=== PATIENT | male | born 1945 | race Caucasian/White ===

== ENCOUNTER 2020-11-06 12:25 | Inpatient (IN) | payer OTHER, BC ==
[~2020-11-06] VITALS: Ht 180.3 cm; Wt 98.0 kg
[2020-11-06] VITALS (18 sets, daily range): BP systolic 77–163; BP diastolic 51–103
[2020-11-06] MEDS ORDERED: PHOS100P3 PO (12:54)
[2020-11-06] MEDS ORDERED: ENALAPRIL PO (12:54)
[2020-11-06] MEDS ORDERED: QUET100T PO (12:54)
[2020-11-06] MEDS ORDERED: SERT50TA PO (12:54)
[2020-11-06] MEDS ORDERED: [UNRECOGNIZED DRUG - CODE] PO (12:54)
[2020-11-06] MEDS ORDERED: VITAMIN D3 PO (12:54)
[2020-11-06 12:59] LABS: BASOPHILS % (AUTO) 0.4 % (0.0-2.0); EOSINOPHILS % (AUTO) 0.2 % (0.0-7.0); HEMATOCRIT 33.7 % (36.7-47.1); HEMOGLOBIN 11.3 g/dL (12.5-16.3); LYMPHOCYTES # (AUTO) 1.2 K/uL (20.0-40.0); LYMPHOCYTES % (AUTO) 15.6 % (20.5-51.5); MEAN CORPUSCULAR HEMOGLOBIN 28.8 uug (23.8-33.4); MEAN CORPUSCULAR HGB CONC 33 g/dL (32.5-36.3); MEAN CORPUSCULAR VOLUME 86.2 fL (73.0-96.2); MONOCYTES # (AUTO) 0.7 K/uL (2.0-10.0); MONOCYTES % (AUTO) 8.3 % (0.0-11.0); NEUTROPHILS # (AUTO) 6.1 K/uL (1.8-8.9); NEUTROPHILS % (AUTO) 75.5 % (38.5-71.5); PLATELET COUNT (AUTO) 209 K/uL (152-348); RED BLOOD CELL COUNT(AUTO) 3.91 MIL/uL (4.06-5.63)
[2020-11-06 13:07] LABS: CARBON DIOXIDE 24 mmol/L (21-32); CHLORIDE 101 mmol/L (98-107); CREATININE 2.6 mg/dL (0.6-1.3); GLUCOSE 133 mg/dL (74-106); POTASSIUM 3.5 mmol/L (3.5-5.1); UREA NITROGEN, BLOOD 31 mg/dL (7-18)
[2020-11-06 13:09] LABS: ETHANOL < 3 MG/DL (0-0)
[2020-11-06 13:13] LABS: ALANINE AMINOTRANSFERASE 37 U/L (16-63); ALKALINE PHOSPHATASE 60 U/L (50-136); ASPARTATE AMINOTRANSFERASE 88 U/L (15-37); BILIRUBIN,DIRECT 0.2 mg/dL (0.0-0.2); BILIRUBIN,TOTAL 0.4 mg/dL (0.2-1.0); TOTAL PROTEIN, SERUM 7.4 g/dL (6.4-8.2)
[2020-11-06 13:14] LABS: ACETAMINOPHEN < 2.0 ug/mL (10-30)
--- NOTE | 2020-11-06 13:15 | NUR ---
Pt back from CT. Pt's arrived and is at bedside.
--- NOTE | 2020-11-06 13:30 | NUR ---
Dr. Palomares spoke with Dr. Arciniega via telephone, pt to be admitted to CCU 5.
[2020-11-06] MEDS ORDERED: PIPERACILLIN SODIUM/TAZOBACTAM 3.375 G in IV DEXTROSE 5% 50 ML IV ONE (13:45)
[2020-11-06 14:04] LABS: ABG BASE EXCESS -3.4 mmol/L; ABG HCO3 21.8 mmol/L; ABG PCO2 40.2 mmHg (35.0-45.0); ABG PH 7.353 (7.350-7.450); ABG PO2 79.2 mmHg (75.0-100.0); ABG SITE RIGHT RADIAL; ABG TOTAL HEMOGLOBIN 11.2 G/dL (13.5-18.0); COHb 0.8 % (0.5-1.5); MetHb 0.3 % (0.0-1.5); O2Hb 93.6 % (94.0-97.0)
[2020-11-06] MEDS ORDERED: PIPERACILLIN/TAZOBACTAM/D5W 50 ML IV ONE (14:09)
[2020-11-06] MEDS ORDERED: ONDANSETRON 4 MG/2 ML VIAL IV PRN (14:30)
[2020-11-06] MEDS ORDERED: MAGNESIUM HYDROXIDE 30 ML LIQUID UDC PO PRN (14:30)
[2020-11-06] MEDS ORDERED: ACETAMINOPHEN 325 MG TABLET PO PRN (14:30)
[2020-11-06] MEDS ORDERED: Z GUARD REMEDY PASTE 57 GM TUBE TOP PRN (14:30)
[2020-11-06] MEDS ORDERED: IV NS 1000 ML 1,000 ML IV PRN (14:30)
[2020-11-06] MEDS ORDERED: PROPOFOL 100 ML ONE (14:33)
--- NOTE | 2020-11-06 14:34 | NUR ---
EVELINA (-) per Lab (Zak
[2020-11-06 14:38] LABS: *AMPHETAMINE, URINE NEGATIVE (NEGATIVE); *CANNABINOID, URINE NEGATIVE (NEGATIVE); *COCCAINE, URINE NEGATIVE (NEGATIVE); *OPIATE, URINE NEGATIVE (NEGATIVE); *PHENCYCLIDINE SCREEN,URINE NEGATIVE (NEGATIVE)
--- NOTE | 2020-11-06 14:40 | NUR ---
Pt intubated by Dr. Palomares with myself and DESIGN PROJECT MANAGER at bedside. Pt was given Etomidate 20mg IVP and Succinylcoline 120mg IVP prior to intubation as ordered by Dr. Palomares.
[2020-11-06] MEDS ORDERED: ETOMIDATE 20 MG/10 ML VIAL IV ONE (14:45)
[2020-11-06] MEDS ORDERED: SUCCINYLCHOLINE CHLORIDE 200 MG/10 ML VIAL IV ONE (14:45)
[2020-11-06] MEDS ORDERED: FAMOTIDINE. 20 MG/2 ML VIAL IV ONE ×2 (14:45→14:59)
--- NOTE | 2020-11-06 14:45 | NUR ---
SBAR report given to FÁTIMA Keyes in CCU via telephone.
[2020-11-06] MEDS ORDERED: PROPOFOL 1,000 MG/100 ML BOTTLE IV ONE (15:15)
--- NOTE | 2020-11-06 15:19 | NUR ---
S/w Sara MORGAN, gave updated vitals and lab results. Pending AUth # but patient is okay to admit
--- NOTE | 2020-11-06 15:30 | NUR ---
Pt trans to CCU with ACLS guidelines in place by myself and CREATIVE SERVICES DIRECTOR.
[2020-11-06] MEDS ORDERED: NOREPINEPHRINE BITARTRATE 8 MG in IV NORMAL SALINE 242 ML IV PRN (16:15)
[2020-11-06] MEDS: PROPOFOL 100 ML IV PRN ×2 (16:22→19:54)
[2020-11-06 16:47] LABS: ABG BASE EXCESS -5.6 mmol/L; ABG HCO3 20.8 mmol/L; ABG PH 7.292 (7.350-7.450); ABG SITE RIGHT RADIAL; ABG TOTAL HEMOGLOBIN 12.3 G/dL (13.5-18.0); COHb 0.7 % (0.5-1.5); MetHb 0.4 % (0.0-1.5); O2Hb 98.6 % (94.0-97.0); VENT MODE VENT - A/C 15; VT, ABG 450 mL
[2020-11-06] MEDS ORDERED: PIPERACILLIN SODIUM/TAZOBACTAM 3.375 G in IV DEXTROSE 5% 50 ML IV SCH (18:00)
--- NOTE | 2020-11-06 18:14 | NUR ---
Received call from poison control. stated that they will continue with supportive care if needed and will call back tomorrow with updates.
[2020-11-06] MEDS: HEPARIN SODIUM,PORCINE 5,000 UNITS/ML VIAL SQ SCH ×2 (18:19→21:29)
[2020-11-06] MEDS ORDERED: ETOMIDATE 20 MG/10 ML VIAL ONE (19:00)
[2020-11-06] MEDS ORDERED: IV NORMAL SALINE 250 ML IV PRN (19:00)
[2020-11-06] MEDS ORDERED: SUCCINYLCHOLINE CHLORIDE 200 MG/10 ML VIAL ONE (19:00)
[2020-11-06] MEDS: PIPERACILLIN SODIUM/TAZOBACTAM 3.37 G in IV DEXTROSE 5% 100 ML IV SCH (21:30)
[2020-11-07] VITALS (23 sets, daily range): BP systolic 95–175; BP diastolic 42–110
[2020-11-07] MEDS: PROPOFOL 100 ML IV PRN (00:27)
[2020-11-07] MEDS: IV NS 1000 ML 1,000 ML IV PRN ×3 (00:39→20:16)
[2020-11-07 05:03] LABS: BASOPHILS % (AUTO) 0.7 % (0.0-2.0); EOSINOPHILS # (AUTO) 0.1 K/uL (0.0-0.7); EOSINOPHILS % (AUTO) 2.2 % (0.0-7.0); HEMATOCRIT 33.4 % (36.7-47.1); LYMPHOCYTES # (AUTO) 1.4 K/uL (20.0-40.0); LYMPHOCYTES % (AUTO) 22.2 % (20.5-51.5); MEAN CORPUSCULAR HEMOGLOBIN 28.9 uug (23.8-33.4); MEAN CORPUSCULAR HGB CONC 33 g/dL (32.5-36.3); MEAN CORPUSCULAR VOLUME 87.8 fL (73.0-96.2); MONOCYTES # (AUTO) 0.7 K/uL (2.0-10.0); MONOCYTES % (AUTO) 10.6 % (0.0-11.0); NEUTROPHILS % (AUTO) 64.3 % (38.5-71.5); PLATELET COUNT (AUTO) 204 K/uL (152-348); RED BLOOD CELL COUNT(AUTO) 3.81 MIL/uL (4.06-5.63); WHITE BLOOD COUNT (AUTO) 6.3 K/uL (3.6-10.2)
[2020-11-07 05:11] LABS: CARBON DIOXIDE 26 mmol/L (21-32); CHLORIDE 107 mmol/L (98-107); CREATININE 1.4 mg/dL (0.6-1.3); GLUCOSE 122 mg/dL (74-106); MAGNESIUM 2.4 mg/dL (1.8-2.4); PHOSPHOROUS 3.2 mg/dL (2.5-4.9); POTASSIUM 3.6 mmol/L (3.5-5.1); UREA NITROGEN, BLOOD 20 mg/dL (7-18)
[2020-11-07] MEDS: PIPERACILLIN SODIUM/TAZOBACTAM 3.37 G in IV DEXTROSE 5% 100 ML IV SCH ×3 (05:20→21:31)
[2020-11-07 06:31] LABS: ABG BASE EXCESS -2.9 mmol/L; ABG HCO3 22.2 mmol/L; ABG PCO2 39.5 mmHg (35.0-45.0); ABG PH 7.367 (7.350-7.450); ABG PO2 67.5 mmHg (75.0-100.0); ABG SITE RIGHT RADIAL; ABG TOTAL HEMOGLOBIN 12.7 G/dL (13.5-18.0); COHb 0.9 % (0.5-1.5); CPAP,BG 6 cmH20; MetHb 0.3 % (0.0-1.5); O2Hb 92.2 % (94.0-97.0); VENT MODE VENT - CPAP
--- NOTE | 2020-11-07 07:05 | NUR ---
PATIENT RESTLESS, AGITATED, ATTEMPTS TO GET OUT OF BED. DR GARAY CALLED AND NOTIFIED. ABG ON CPAP TRIAL/ORDERS TO EXTUBATE. AT THIS TIME PATIENT EXTUBATED AND ON NASAL CANNULA AT 4L/MIN. PROCEDURE DONE BY RT. AVINASH
--- NOTE | 2020-11-07 07:15 | NUR ---
RECEIVED PATIENT ON NASAL CANNULA AT 4L/MIN. RESTLESS, AGITATED, ON B/L WRIST RESTRAINTS. PATIENT NOTED ATTEMPTING TO REMOVE IV LINE, AND GUADALUPE CATHETER. FOR COMFORT, GUADALUPE CATHETER REMOVED. HEMODYNAMICALLY STABLE. WILL CONTINUE TO MONITOR.
--- NOTE | 2020-11-07 08:30 | NUR ---
ATTENDING HOOP CUTTER, SHRESTHA IN THE UNIT TO FOLLOW UP WITH PATIENT. REPORT GIVEN. ORDERS TO CONTINUE WITH CARE PLAN RECEIVED.
[2020-11-07] MEDS: FAMOTIDINE. 20 MG/2 ML VIAL IV SCH (08:33)
[2020-11-07] MEDS: HEPARIN SODIUM,PORCINE 5,000 UNITS/ML VIAL SQ SCH ×2 (08:34→21:34)
--- NOTE | 2020-11-07 09:38 | NUR ---
REPORT GIVEN TO DR GARAY - JUKEBOX OPERATOR. ORDER RECEIVED AND IMPLEMENTED.
--- NOTE | 2020-11-07 11:47 | NUR ---
Patient remains restless agitated, attempting to get out of bed unsupervised and attempting to removed Iv line and oxygen.
[2020-11-07] MEDS: LORAZEPAM 2 MG/1 ML VIAL IV PRN ×2 (12:00→19:54)
--- NOTE | 2020-11-07 12:00 | NUR ---
PATIENT AGITATED AND REMOVING LINES. ATTEMPTING TO GET OUT OF BED UNATTENDED. REMOVED SPO2 SENSOR, REPLACED SPO2 SENSOR AND PATIENT REMOVED SENSOR AGAIN. PATIENT ON RESTRAINTS FOR SAFETY. WILL CONTINUE TO MONITOR.
[2020-11-07] MEDS: HYDROCODONE/APAP 5-325MG TABLET PO PRN (12:38)
--- NOTE | 2020-11-07 13:15 | NUR ---
PATIENT'S VISITING AT BEDSIDE. BROUGHT HEARING AIDS AND GLASSES - PROPERTY INVENTORY LIST UPDATED.
[2020-11-07] MEDS ORDERED: OLANZAPINE ZYDIS 5 MG TAB.RAPDIS PO ONE (13:45)
--- NOTE | 2020-11-07 17:49 | NUR ---
RECEIVED CALL FROM ESTRELLA FROM POISON CONTROL, UPDATED ON PATIENT CONDITION. STATED THAT THEY WILL "CONTINUE SUPPORT CARE IF NEEDED BUT IS CLEAR FROM THEIR POINT OF VIEW; HOWEVER, REMAINS AN AVAILABLE RESOURCE ANY TIME."
--- NOTE | 2020-11-07 19:10 | NUR ---
PATIENT USES BILATERAL HEARING AIDS
--- NOTE | 2020-11-07 19:10 | NUR ---
RECEIVED PATIENT COMBATIVE , UNCOOPERATIVE , ON OXYGEN 4 L NC , NS AT 75 ML RUNNING , IV INTACT , INCONTINETN OF BOWELS AND URINE
--- NOTE | 2020-11-07 20:00 | NUR ---
AGITATE , COMBATIVE , TIFFANY SITTER AT BEDSIDE TO KENIA M PATIENT
[2020-11-08] VITALS (14 sets, daily range): BP systolic 125–159; BP diastolic 76–97
[2020-11-08] MEDS: HYDROCODONE/APAP 5-325MG TABLET PO PRN ×3 (00:20→20:22)
[2020-11-08] MEDS: LORAZEPAM 2 MG/1 ML VIAL IV PRN (01:57)
[2020-11-08] MEDS: PIPERACILLIN SODIUM/TAZOBACTAM 3.37 G in IV DEXTROSE 5% 100 ML IV SCH ×3 (05:21→22:00)
[2020-11-08 05:24] LABS: BASOPHILS % (AUTO) 0.5 % (0.0-2.0); EOSINOPHILS # (AUTO) 0.2 K/uL (0.0-0.7); EOSINOPHILS % (AUTO) 2.9 % (0.0-7.0); HEMATOCRIT 32.1 % (36.7-47.1); HEMOGLOBIN 10.8 g/dL (12.5-16.3); LYMPHOCYTES # (AUTO) 2.1 K/uL (20.0-40.0); LYMPHOCYTES % (AUTO) 27.7 % (20.5-51.5); MEAN CORPUSCULAR HEMOGLOBIN 29.2 uug (23.8-33.4); MEAN CORPUSCULAR HGB CONC 34 g/dL (32.5-36.3); MEAN CORPUSCULAR VOLUME 86.9 fL (73.0-96.2); MONOCYTES # (AUTO) 0.8 K/uL (2.0-10.0); MONOCYTES % (AUTO) 10.1 % (0.0-11.0); NEUTROPHILS # (AUTO) 4.5 K/uL (1.8-8.9); NEUTROPHILS % (AUTO) 58.8 % (38.5-71.5); PLATELET COUNT (AUTO) 211 K/uL (152-348); RED BLOOD CELL COUNT(AUTO) 3.69 MIL/uL (4.06-5.63); WHITE BLOOD COUNT (AUTO) 7.6 K/uL (3.6-10.2)
[2020-11-08 05:36] LABS: BILIRUBIN,TOTAL 0.6 mg/dL (0.2-1.0); MAGNESIUM 1.9 mg/dL (1.8-2.4); PHOSPHOROUS 2.6 mg/dL (2.5-4.9); POTASSIUM 3.1 mmol/L (3.5-5.1); TOTAL PROTEIN, SERUM 6.6 g/dL (6.4-8.2)
--- NOTE | 2020-11-08 06:55 | NUR ---
patient is easy arousble , , combative and restless when awake , sitter at bedisde on 4 l nc , bp 159/97 hr 75 rr 15 , ns 75 ml christiano , incontinent , no fever noted
--- NOTE | 2020-11-08 07:45 | NUR ---
Received report from minilab operator nurse, patient in bed asleep, no distress noted at this time. Sinus rhythm on the monitor. Oxygen saturation 92% on the monitor with 3L nasal cannula. Sitter at bedside. Bed in low position, side rails up x2. Bed alarm on.
[2020-11-08] MEDS: HEPARIN SODIUM,PORCINE 5,000 UNITS/ML VIAL SQ SCH ×2 (09:23→21:00)
[2020-11-08] MEDS: FAMOTIDINE. 20 MG/2 ML VIAL IV SCH (09:23)
[2020-11-08] MEDS: POTASSIUM CHLORIDE 10 MEQ, LIDOCAINE-MPF 1% 1 ML in IV DEXTROSE 5% 100 ML IV SCH ×4 (09:28→12:08)
[2020-11-08] MEDS ORDERED: OLANZAPINE 10 MG VIAL IM PRN (09:30)
[2020-11-08 10:27] LABS: *BILIRUBIN,URIN NEGATIVE (NEGATIVE); *BLOOD, URINE NEGATIVE (NEGATIVE); *CLARITY,URINE CLEAR (CLEAR); *COLOR,URINE YELLOW (YELLOW); *KETONES,URINE NEGATIVE (NEGATIVE); *UROBILINOGEN,URINE 0.2 E.U./dl (NORMAL); LEUKOCYTE ESTERASE ,URINE NEGATIVE (NEGATIVE); NITRITE, URINE NEGATIVE (NEGATIVE); PH,URINE 6.5 (5.0-8.0); UGLUCOSE NEGATIVE (NEGATIVE)
[2020-11-08] MEDS: IV NS 1000 ML 1,000 ML IV PRN (11:05)
[2020-11-08 11:06] LABS: *CREATININE,URINE 35.6 mg/dL (30-125)
--- NOTE | 2020-11-08 13:06 | NUR ---
Received a return phone call from [facility] after several hours of leaving her a message and despite telling her that we have a consult, and that DR Estrada requested PET Team to be called continues to be adamant that the patient doesn't quality.
--- NOTE | 2020-11-08 13:45 | NUR ---
Patient transferred to Tele floor. Patient pulled out upper arm IV just prior to transfer. Notified Madelyn SHINE.
--- NOTE | 2020-11-08 14:00 | NUR ---
Patient transferred from CCU. Report received from FÁTIMA Keyes. Pt transferred to TELE via wheelchair. Pt very confused and very forgetful. Oriented to person. Abrasion left lower abdomen and right arm. Pt on TELE monitor, sinus rhythm. Pt on room air. No signs of distress and no reports of pain. Urinal at bedside. Unsteady gait. Pt pulled out ANITA midline prior to transfer to TELE. Bed alarm on. Safety and fall precautions in place. Pt is hard of hearing, uses hearing aids. Bed in low and locked position. Will continue to monitor. Addendum: 11/08/20 at 1431 by ARSALAN CHAU RN Pt refused vitals to be taken. Pt does not want to have TELE leads on.
--- NOTE | 2020-11-08 14:30 | NUR ---
attempted to started IV, pt refused. unable to give IV med at this time.
--- NOTE | 2020-11-08 14:30 | NUR ---
pt is refusing all medications, and care. needs constant supervision, pt close to nursing station, increase monitoring is being done. safety measures in place, will continue to monitor.
--- NOTE | 2020-11-08 15:02 | NUR ---
Hotel Or Motel Manager note: Hotel Or Motel Manager consulted received. ADIA attempted to meet with this patient, however patient is confused, observed to be restless, getting out of bed, being redirected and assisted by nursing to return to bed. ADIA is unable to interview patient at this time. ADIA will remain available, and follow up, as needed. Addendum: 11/08/20 at 1503 by DONOVAN CHEEK CORRECTION: Hotel Or Motel Manager consultation received.
--- NOTE | 2020-11-08 17:20 | NUR ---
pt was becoming aggressive and not cooperative with instruction, pt was going to be medicated and was given clear instructions. pt is demented and upon giving the mediation IM, the pt turned his head and bit my lateral forearm and latched on until I was done giving the medication. An incident report was made, hardboard supervisor was made aware, and I went down to ER to get checked.
[2020-11-08] MEDS: QUETIAPINE FUMARATE 100 MG TABLET PO SCH ×2 (18:00→18:01)
[2020-11-08] MEDS: CHLORDIAZEPOXIDE HCL 25 MG CAPSULE PO SCH ×2 (18:00→18:01)
--- NOTE | 2020-11-08 18:59 | NUR ---
pt in bed resting, pt refusing all care, MD made aware. pt needs constant supervision pt on room air, no signs of distress noted, no reports of pain noted. pt ambulatory to restroom with assist, urinal at bedside. bed in low and locked position, safety and fall precautions in place, bed alarm on. will endorse to oncoming nurse.
--- NOTE | 2020-11-08 19:30 | NUR ---
RECEIVED PT IN BED. PT HARD OF HEARING. 1;1 SITTER FOR SAFETY. PT IN NO ACUTE DISTRESS. PT REFUSED IV ACCESS. SAFETY AND COMFORT PROVIDED. WILL CONTINUE TO MONITOR.
--- NOTE | 2020-11-08 20:08 | NUR ---
NOTIFY DEMARCUS SHRESTHA NP THAT PT DON'T HAVE IV ACCESS. PT REFUSING TO HAVE IV ACCESS. PT IN NO ACUTE DISTRESS. WILL CONTINUE TO MONITOR.
[2020-11-09] MEDS: CHLORDIAZEPOXIDE HCL 25 MG CAPSULE PO SCH ×3 (00:37→11:07)
[2020-11-09 04:00] VITALS: BP 141/106
[2020-11-09] MEDS ORDERED: CHLORDIAZEPOXIDE HCL 25 MG CAPSULE ONE (05:33)
[2020-11-09] MEDS: PIPERACILLIN SODIUM/TAZOBACTAM 3.37 G in IV DEXTROSE 5% 100 ML IV SCH (06:00)
--- NOTE | 2020-11-09 06:33 | NUR ---
PT SLEPT INTERMITTENTLY. SITTER FOR SAFETY. PT IN NO ACUTE DISTRESS. IV INTACT. PT REFUSED TO TAKE HIS HEPARIN MEDICATION AND TO HAVE IV ACCESS. DR STEEL. PRESCRIBED MEDICATION GIVEN AND PT TOLERATED IT WELL.AT NORCO 5-325MG PRN WAS GIVEN TO PT FOR GENERALIZED PAIN. PT TOLERATED IT WELL. PT CONFUSED AND NEEDS REDIRECTION. SAFETY AND COMFORT PROVIDED. ALL NEEDS ARE MET. WILL ENDORSE TO INCOMING NURSE FOR CONTINUITY OF CARE.
[2020-11-09 06:36] LABS: BASOPHILS # (AUTO) 0.1 K/uL (0.0-8.0); BASOPHILS % (AUTO) 0.9 % (0.0-2.0); EOSINOPHILS # (AUTO) 0.2 K/uL (0.0-0.7); EOSINOPHILS % (AUTO) 2.9 % (0.0-7.0); HEMATOCRIT 37.9 % (36.7-47.1); HEMOGLOBIN 12.5 g/dL (12.5-16.3); LYMPHOCYTES # (AUTO) 1.8 K/uL (20.0-40.0); LYMPHOCYTES % (AUTO) 27.1 % (20.5-51.5); MEAN CORPUSCULAR HEMOGLOBIN 28.5 uug (23.8-33.4); MEAN CORPUSCULAR HGB CONC 33 g/dL (32.5-36.3); MEAN CORPUSCULAR VOLUME 86.5 fL (73.0-96.2); MONOCYTES # (AUTO) 0.8 K/uL (2.0-10.0); MONOCYTES % (AUTO) 11.2 % (0.0-11.0); NEUTROPHILS # (AUTO) 3.9 K/uL (1.8-8.9); NEUTROPHILS % (AUTO) 57.9 % (38.5-71.5); PLATELET COUNT (AUTO) 256 K/uL (152-348); RED BLOOD CELL COUNT(AUTO) 4.37 MIL/uL (4.06-5.63); WHITE BLOOD COUNT (AUTO) 6.8 K/uL (3.6-10.2)
[2020-11-09 06:42] LABS: PHOSPHOROUS 3.4 mg/dL (2.5-4.9); POTASSIUM 3.2 mmol/L (3.5-5.1)
[2020-11-09] MEDS ORDERED: SERTRALINE HCL 50 MG TABLET PO SCH (09:00)
[2020-11-09] MEDS ORDERED: POTASSIUM CHLORIDE 20 MEQ TAB.PRT.SR PO ONE (09:00)
[2020-11-09] MEDS: HEPARIN SODIUM,PORCINE 5,000 UNITS/ML VIAL SQ SCH (09:00)
[2020-11-09] MEDS ORDERED: FAMOTIDINE 20 MG TABLET PO SCH (09:00)
[2020-11-09] MEDS: HYDROCODONE/APAP 5-325MG TABLET PO PRN (09:49)
--- NOTE | 2020-11-09 10:26 | NUR ---
Motor And Generator Assembler note: This Hat Forming Machine Operator attempted to meet with patient again this morning. Patient is awake, alert, however hard of hearing and unable to engage in conversation with this SW. Patient has 2 hearing aids, one is battery operated, and the other needs to be charged. SW called patient's Fouzia [phone], who stated that she brought batteries and the smelter charger to the hospital yesterday. Patient's sitter looked through patient's belongings and found batteries and smelter charger. Batteries are the wrong size, and therefore cannot be used. The other hearing aid was placed in the smelter charger to be charged. Patient's nurse informed. Patient's inquired about plan of care and discharge plans. Options discussed, pending further evaluations. Patient's stated that at this time, she would not be able to provide the necessary care at home for the patient. SW expressed understanding. SW also inquired if patient has a healthcare directive and POA, and patient's stated that she will bring the POA paperwork to the hospital some time today. SW expressed agreement.
[2020-11-09 11:00] VITALS: BP 134/92
[2020-11-09] MEDS: AMOXICILLIN-CLAVUL 875-125MG TABLET PO SCH ×2 (11:01→20:00)
[2020-11-09 16:10] VITALS: BP 144/80
--- NOTE | 2020-11-09 16:33 | NUR ---
ADIA received a call from patient's physician Ahmet Murdock NP, requesting clarification on POA for the patient, since patient also has a daughter. Per Ahmet, patient's daughter had called the nurse's station yesterday claiming to be a decision maker for the patient, however had not submitted/faxed any paperwork to support this claim, nor had she left a call back number. ADIA received a copy of patient's POA brought in today by patient's Fouzia. The POA identifies patient's Fouzia as POA agent, and it was executed on July 24, 2020. ADIA called patient's Fouzia to inquire about patient's daughter's status, and Fouzia stated that patient's daughter Iqra lives in [place] and "she only calls when she needs money". Fouzia stated that Iqra never answers the phone when someone tries to call her, but nevertheless Fouzia stated that the POA form she brought in today is the most recent one. ADIA then spoke with EDDIE Wilkinson and Ahmet Murdock NP, and discussed above information and content of POA form that was brought in by . At this time, point of contact and POA has been identified as patient's Fouzia. As listed in patient's POA form, coordination of care and discharge planning to be discussed with patient's .
[2020-11-09] MEDS: QUETIAPINE FUMARATE 100 MG TABLET PO SCH (17:39)
[2020-11-09 17:50] LABS: ALBUMIN 2.8; ALPHA-1-GLOBULIN 0.3; ALPHA-2-GLOBULIN 0.8; BETA GLOBULIN 0.9; GAMMA GLOBULIN 0.9
[2020-11-09 17:51] LABS: GLOBULIN, TOTAL 2.9; M-SPIKE 0.2
[2020-11-09] MEDS ORDERED: CHLORDIAZEPOXIDE HCL 25 MG CAPSULE PO SCH (18:00)
--- NOTE | 2020-11-09 19:30 | NUR ---
Received patient in his room, speaking to his sitter. 1:1 sitter on site. Patient AAOX1-2 with some confusion and very TELIDA even with hearing aide in place. In no acute distress. Denies any pain or SOB.No behavioral issue noted at this time. Calm and pleasant. Patient awaiting to be pear picker by Ambulance to be discharge to [facility].
--- NOTE | 2020-11-09 19:44 | NUR ---
Telephone call to Sabina in the [facility], spoke to STATION WORKER Lae and gave report regarding patient and states understanding. Patient will be in room #5 per Lae. Faxed medication list per Lae request.
--- NOTE | 2020-11-09 20:09 | NUR ---
Patient picked up by [id number], via gurney accompanied by 2 paramedics. All belongings with patient. Patient left AAOx1-2, [place]. In no acute distress. VS WNL.
[2020-11-09] MEDS ORDERED: CLONAZEPAM 0.5 MG TABLET PO SCH (21:00)
== END 2020-11-09 20:10 | DRG 917 ==
LOC: ER 12:25 → CCU 15:19 → TELE3 11-08 13:45 → MEDSURG3 11-08 17:33
PROVIDERS: ADMIT Internal Medicine; ATTEND Nurse Practitioner Family
PROC: 5A1935Z Respiratory Ventilation, Less than 24 Consecutive Hours (ICD-10-PCS; principal; 2020-11-06)
PROC: 0BH17EZ Insertion of Endotracheal Airway into Trachea, Via Natural or Artificial Opening (ICD-10-PCS; 2020-11-06)
PROC: 05H533Z Insertion of Infusion Device into Right Subclavian Vein, Percutaneous Approach (ICD-10-PCS; 2020-11-06)
PROC: B546ZZA Ultrasonography of Right Subclavian Vein, Guidance (ICD-10-PCS; 2020-11-06)
DX: T42.4X1A Poisoning by benzodiazepines, accidental (unintentional), initial encounter (principal); G92 Toxic encephalopathy; N17.0 Acute kidney failure with tubular necrosis; J96.02 Acute respiratory failure with hypercapnia; J96.01 Acute respiratory failure with hypoxia; J69.0 Pneumonitis due to inhalation of food and vomit; E87.6 Hypokalemia; F03.90 Unspecified dementia, unspecified severity, without behavioral disturbance, psychotic disturbance, mood disturbance, and anxiety; F32.9 Major depressive disorder, single episode, unspecified; Z20.822 Contact with and (suspected) exposure to COVID-19; D63.8 Anemia in other chronic diseases classified elsewhere; T43.591A Poisoning by other antipsychotics and neuroleptics, accidental (unintentional), initial encounter; Y92.009 Unspecified place in unspecified non-institutional (private) residence as the place of occurrence of the external cause; I12.9 Hypertensive chronic kidney disease with stage 1 through stage 4 chronic kidney disease, or unspecified chronic kidney disease; N18.9 Chronic kidney disease, unspecified
CPT/HCPCS: 36415; 36600; 51702; 70030-TC; 70450; 71045; 76770; 83605; 83735; 83970; 84100; 84155; 84156; 84165; 84300; 85025; 85730; 86803; 87040; 87070; 87536; 93005; 94002; A4663; G0378; G0480; J0330; J1644; J2001; J2060; J2358; J2543; J3480; J3490; J7030; J7050; J7060; U0003